=== PATIENT | female | born 1935 | race Caucasian/White ===

== ENCOUNTER 2022-01-07 08:00 | Outpatient (CLI) | payer OTHER ==
[2022-01-07 15:48] LABS: BILIRUBIN,URINE NEGATIVE (NEGATIVE); GLUCOSE, URINE (UA) NEGATIVE (NEGATIVE); KETONES,URINE (UA) NEGATIVE (NEGATIVE); LEUKOCYTE ESTERASE, URINE LARGE (NEGATIVE); NITRITE,URINE NEGATIVE (NEGATIVE); OCCULT BLOOD,URINE MODERATE (NEGATIVE); PROTEIN,URINE NEGATIVE (NEGATIVE); UROBILINOGEN,URINE 0.2 (NORMAL) E.U./dL (NORMAL)
[2022-01-07 16:13] LABS: BACTERIA,URINE Many /HPF (None Seen); CLARITY,URINE HAZY (CLEAR); RBC,URINE TNTC /HPF (0-5); SQUAMOUS EPITHELIAL CELL,UR FEW Squamous (<= Few); WBC,URINE >25 /HPF (0-5)
== END 2022-01-07 23:59 | disposition home or self-care (01) ==
LOC: LAB.R 08:00
PROVIDERS: ATTEND Internal Medicine
DX: R39.9 Unspecified symptoms and signs involving the genitourinary system (principal)
CPT/HCPCS: 81001; 87086; 87181

== ENCOUNTER 2022-10-16 10:41 | Outpatient (CLI) | payer MEDICARE ==
--- NOTE | 2022-10-17 12:11 | Ultrasound Report ---
LIMITED ULTRASOUND OF LEFT BREAST: 10/16/2022 CLINICAL: Occasional left breast pain. Comparison is made to exams dated: 10/16/2022 mammogram - [facility], 02/24/2020 radha mogram, 02/12/2019 mammogram, and 02/11/2018 mammogram - [facility]. Color flow and real-time ultrasound of the left breast 2 o'clock region were performed. Delgado scale i mages of the real-time examination were reviewed. No significant abnormalities were seen sonographically in the left breast in the region of pain. IMPRESSION: NEGATIVE There is no sonographic evidence of malignancy. Exam findings were conveyed to the patient. Patient is advised to monitor for significant change. Cli nical follow-up as needed. A 1 year screening mammogram is recommended. This exam was interpreted at Station ID: [id number]. Electronically Signed By: Danny iJmenez M.D. slc/:10/16/2022 12:18:02 Ultrasound BI-RADS: 1 Negative BI-RADS CATEGORY: (1) - 1 Mammogram [id number] 1 year screening LATERALITY: (B)
--- NOTE | 2022-10-17 12:11 | Mammography Report ---
BILATERAL DIGITAL DIAGNOSTIC MAMMOGRAM 3D/2D: 10/16/2022 CLINICAL: Occasional left breast pain. Due for bilateral imaging. Comparison is made to exams dated: 02/24/2020 mammogram, 02/12/2019 mammogram, and 02/11/2018 mammogram - [facility]. Both breasts are heterogeneously dense, which may obscure small masses (category c / 51-75% glandular tissue). No significant masses, calcifications, or other findings are seen in either breast. IMPRESSION: INCOMPLETE: NEEDS ADDITIONAL IMAGING EVALUATION No mammographic evidence of malignancy. A targeted ultrasound is recommended and will immediately follow. This exam was interpreted at Station ID: [id number]. NOTE: For mammograms, a report in lay terms will be sent to the patient. Approximately 15% of breast malignancies will not be visualized mammographically. In the management of a palpable breast mass, a negative mammogram must not discourage biopsy of a clinically suspicious lesion. Electronically Signed By: Danny Jimenez M.D. slc/:10/16/2022 11:43:21 ACR BI-RADS Category 0: Incomplete 3340F PARENCHYMAL PATTERN: (D) - The breast(s) demonstrate(s) heterogeneously dense fibroglandular parenchy ma. BI-RADS CATEGORY: (0) - 0 Ultrasound [id number] Immediate follow-up LATERALITY: (B)
== END 2022-10-16 10:42 | disposition home or self-care (01) ==
LOC: DI 10:41
PROVIDERS: ATTEND Internal Medicine
DX: N64.4 Mastodynia (principal); N63.21 Unspecified lump in the left breast, upper outer quadrant

== ENCOUNTER 2023-10-23 09:58 | Outpatient (CLI) | payer MEDICARE | END 2023-10-23 09:59 | disposition home or self-care (01) | LOC: LAB.R 09:58 | PROVIDERS: ATTEND Internal Medicine | DX: E83.52 Hypercalcemia (principal) | CPT/HCPCS: 81599 ==